=== PATIENT | female | born 1950 | race Caucasian/White ===

== ENCOUNTER → 2017-12-24 | Outpatient (CLI) | payer MEDICARE, OTHER ==
[~2017-12-24] MED LIST: ABAT250V; ACET500 PO; Bupropion Xl150 MG PO; CLON.5 PO; GABA300 PO; HYDSUL200 PO; MELO7.5 PO; METO100ER PO; OMEPRAZOLE MAGN20 MG PO; OXYC10TA19 PO; Omeprazole20 M1 PO; PRED10 PO; PRED5 PO; SUCR1 PO; ZOLP10 PO
== END | disposition home or self-care (01) ==
LOC: OLS 16:53
DX: N89.8 Other specified noninflammatory disorders of vagina (principal); N90.89 Other specified noninflammatory disorders of vulva and perineum
CPT/HCPCS: 87070; 87205

== ENCOUNTER → 2018-12-18 | Outpatient (CLI) | payer MEDICARE, OTHER ==
[2018-12-19 16:07] LABS: HPV 16 Negative (Negative); HPV 18 Negative (Negative); HPV OTHER HR TYPES Negative (Negative)
== END | disposition home or self-care (01) ==
LOC: LAB SHORT 12:08 → LAB 12:08
PROVIDERS: Nurse Practitioner Women's Health
DX: Z12.72 Encounter for screening for malignant neoplasm of vagina (principal); Z86.19 Personal history of other infectious and parasitic diseases; Z91.89 Other specified personal risk factors, not elsewhere classified
CPT/HCPCS: 87624; G0123

== ENCOUNTER → 2022-02-15 | Outpatient (CLI) | payer MEDICARE, OTHER ==
[2022-02-16 12:07] LABS: Adenovirus F 40/41 Not Detected (NOT DETECT); Astrovirus Not Detected (NOT DETECT); Campylobacter Sp Not Detected (NOT DETECT); Cryptosporidium Not Detected (NOT DETECT); Cyclospora Cayetanensis Not Detected (NOT DETECT); E. Coli O157 Not Detected (NOT DETECT); Entamoeba Histolytica Not Detected (NOT DETECT); Enteroaggregative E. coli-EAEC Not Detected (NOT DETECT); Enteropathogenic E. coli-EPEC Not Detected (NOT DETECT); Enterotoxigenic E. coli-ETEC Not Detected (NOT DETECT); Giardia Lamblia Not Detected (NOT DETECT); Norovirus GI/GII Not Detected (NOT DETECT); Plesiomonas Shigelloides Not Detected (NOT DETECT); Rotavirus A Not Detected (NOT DETECT); Salmonella Sp Not Detected (NOT DETECT); Sapovirus Not Detected (NOT DETECT); Shiga Toxin-prod E. coli-STEC Not Detected (NOT DETECT); Shigella/Enteroin E. coli-EIEC Not Detected (NOT DETECT); Vibrio Cholerae Not Detected (NOT DETECT); Vibrio Sp Not Detected (NOT DETECT); Yersinia Enterocolitica Not Detected (NOT DETECT)
== END | disposition home or self-care (01) ==
LOC: LAB SHORT 22:00
PROVIDERS: Physician Assistant
DX: R19.7 Diarrhea, unspecified (principal)
CPT/HCPCS: 87507

== ENCOUNTER → 2024-03-06 | Outpatient (CLI) | payer MEDICARE, OTHER | END | disposition home or self-care (01) | LOC: LAB EV 11:06 → LAB SHORT 11:06 | DX: L72.8 Other follicular cysts of the skin and subcutaneous tissue (principal) | CPT/HCPCS: 88304 ==

== ENCOUNTER 2024-11-25 08:30 | Day surgery (SDC) | payer MEDICARE, OTHER ==
[2024-11-25] VITALS (18 sets, daily range): BP systolic 89–140; BP diastolic 47–108
[~2024-11-25] VITALS: Ht 167.6 cm; Wt 75.0 kg
[~2024-11-25 08:30] MED LIST changes: +Acyclovir800 MG PO; +BUPR150ER PO; -Bupropion Xl150 MG PO; +Cymbalta20 MG PO; +FIBER PO; +MULVITA PO; +OMEP20ER PO; -Omeprazole20 M1 PO; +VITAMIN D350 MC3 PO
[2024-11-25] MEDS ORDERED: Lactated Ringer's 1,000 ML IV SCH ×2 (08:50→11:00)
[2024-11-25] MEDS ORDERED: Tranexamic Acid 1,000 MG in NS 100 ML IV SCH (08:50)
[2024-11-25] MEDS ORDERED: Ropivacaine 0.5% HCl/Pf 123.125 MG,EPINEPHrine HCL 0.25 MG,Ketorolac Tromethamine 15 MG... INFIL SCH (08:50)
[2024-11-25] MEDS ORDERED: Acetaminophen 500 MG Tab PO SCH ×2 (08:50→16:00)
[2024-11-25] MEDS ORDERED: Chlorhexidine Mouth Care 15 ML UDC MT SCH (08:50)
[2024-11-25] MEDS ORDERED: CeFAZolin Sodium 2,000 MG in NS 100 ML IV SCH ×2 (08:50→20:00)
[2024-11-25] MEDS ORDERED: OxyCODONE HCL 10 MG TABCR PO SCH (09:00)
[2024-11-25] MEDS ORDERED: META800 PO (09:22)
[2024-11-25] MEDS ORDERED: Midazolam HCl 1MG / ML 2ML Vial ONE (10:14)
[2024-11-25] MEDS ORDERED: Bisacodyl 10 MG Supp PR PRN (10:55)
[2024-11-25] MEDS ORDERED: OxyCODONE HCL 5 MG TAB PO PRN ×2 (10:55)
[2024-11-25] MEDS ORDERED: HYDROmorphone HCl/Pf 1MG SYR IV PRN (10:55)
[2024-11-25] MEDS ORDERED: FLU VACC TS2024-25(6MOS UP)/PF 45 MCG/0.5 ML SYRINGE IM SCH (11:00)
[2024-11-25] MEDS ORDERED: Metoclopramide HCl 5MG / ML 2ML Vial IV PRN (11:00)
[2024-11-25] MEDS ORDERED: Magnesium Hydroxide Conc 10 ML UDC PO PRN (11:00)
[2024-11-25] MEDS ORDERED: Ondansetron HCl 2 MG / ML 2ML Vial IV PRN (11:00)
[2024-11-25] MEDS ORDERED: DiphenhydrAMINE HCL 25 MG Cap PO PRN (11:05)
[2024-11-25] MEDS ORDERED: Promethazine HCl 25 MG Tab PO PRN (11:05)
[2024-11-25] MEDS ORDERED: propofoL 60 ML IV ONE (11:40)
[2024-11-25] MEDS ORDERED: ePHEDrine Sulfate 50 MG/ML 1ML Injection ONE (12:31)
--- NOTE | 2024-11-25 14:15 | NUR ---
PT ARRIVED FROM PACU TO RM 215 AT APPROXIMATELY 1410. PT HAD SPINAL ANESTHESIA AND STILL HAS NUMBNESS TO BLE ALTHOUGH SHE IS STARTING TO MOVE HER FEET. SPINAL ANESTHESIA SITE WNL. R KNEE INCISION SITE COVERED WITH AQUACEL AND STEVE WRAP, DRESSINGS C/D/I. PT EDUCATED TO USE THE CALL LIGHT AND IT WAS PLACED WITHIN REACH. VSS. PT'S FRIEND AT THE BEDSIDE FOR SUPPORT.
[2024-11-25] MEDS ORDERED: Ketorolac Tromethamine 15mg Vial IV SCH (18:00)
[2024-11-25] MEDS ORDERED: LORazepam 0.5 MG Tab PO PRN (18:40)
--- NOTE | 2024-11-25 19:00 | NUR ---
SHIFT SUMMARY PT IS POD#0 FROM R TKA WITH DR. ZHU. PAIN MANAGED WITH PO PAIN MEDICATION. PT HAS BEEN OOB TO AMBULATE AND WORKED WITH THERAPY BUT DID NO CLEAR THERAPY. PT BECAME ANXIOUS AND STATED SHE WANTED TO DISCHARGE HOME, SHE WAS CRYING AND REPORTED SHE HAS HAVING A PANIC ATTACK. PT STATED THAT SHE WOULD BE WILLING TO STAY IF SHE COULD TAKE SOMETHING FOR ANXIETY. DR. ZHU NOTIFIED OF SITUATION, ATIVAN GIVEN PER DR. ZHU ORDER. PT TOLERATED PO. WAITING FOR POST-OP VOID. BEDSIDE REPORT GIVEN TO DENISE SCALES.
[2024-11-25] MEDS ORDERED: Docusate Sodium 100 MG Cap PO SCH (21:00)
[2024-11-25] MEDS ORDERED: Gabapentin 300 MG Cap PO SCH (21:00)
[2024-11-26 00:26] VITALS: BP 119/78
--- NOTE | 2024-11-26 00:39 | NUR ---
TRANSFER OF CARE S/P R TOTAL KNEE. AQUACEL & STEVE WRAP C/D/I, NO DRAINAGE. POLAR PACK IN PLACE. PT REPORTS PAIN IS WELL MANAGED W/CURRENT PAIN MED REGIMEN. HAS VOIDED, TOLERATING PO, AMBULATED IN RM 1 ASSIST. GAVE REPORT TO RONDA Worley
[2024-11-26 04:53] VITALS: BP 108/57
--- NOTE | 2024-11-26 05:32 | NUR ---
SX SUMMARY- PAIN AND ANXIETY HAS BEEN MANAGED WELL. PT IS EAGER TO GO HOME. PT DENIES N/T THIS AM. PT IS AMBULATORY AND VOIDING. PT IS AWAKE AND HAS NO COMPLAINTS. CALL LIGHT IN REACH.
[2024-11-26 05:35] LABS: BASOPHILS ABSOLUTE AUTO 0.04 K/mm3 (0.00-0.23); BASOPHILS PERCENT AUTO 1 % (0-2); EOSINOPHILS ABSOLUTE AUTO 0.15 K/mm3 (0.00-0.68); EOSINOPHILS PERCENT AUTO 2 % (0-6); Hematocrit 34.5 % (33.0-51.0); Hemoglobin 11.1 g/dL (11.5-16.0); IMMATURE GRAN ABSOLUTE AUTO 0.01 K/mm3 (0.00-0.10); IMMATURE GRAN PERCENT AUTO 0 % (0-1); LYMPHOCYTES ABSOLUTE AUTO 1.45 K/mm3 (0.84-5.20); LYMPHOCYTES PERCENT AUTO 21 % (21-46); MONOCYTES ABSOLUTE AUTO 1.05 K/mm3 (0.16-1.47); MONOCYTES PERCENT AUTO 15 % (4-13); Mean Corpuscular HGB Conc 32.2 g/dL (31.5-36.5); Mean Corpuscular Volume 93 fL (80-100); Mean Platelet Volume 9.1 fL (9.1-12.4); NEUTROPHILS PERCENT AUTO 62 % (41-73); Platelet Count 187 K/mm3 (150-400); RDW Coefficient Variation 12.1 % (11.7-14.2); RDW Standard Deviation 42.2 fL (35.1-46.3)
[2024-11-26] MEDS ORDERED: Omeprazole 20 MG CapCR PO SCH (06:00)
[2024-11-26 06:06] LABS: Calcium, Blood 8.6 mg/dL (8.5-10.1); Creatinine, Blood 0.73 mg/dL (0.40-1.00); Potassium, Blood 3.9 mmol/L (3.5-5.5)
[2024-11-26 07:35] VITALS: BP 112/67
[2024-11-26] MEDS ORDERED: ASPI81CH PO (08:34)
[2024-11-26] MEDS ORDERED: DULoxetine HCL 20 MG Cap DR PO SCH (09:00)
[2024-11-26] MEDS ORDERED: buPROPion HCL 150 MG TAB.SR.12H PO SCH (09:00)
[2024-11-26] MEDS ORDERED: Multivitamins 1 Tab PO SCH (09:00)
[2024-11-26] MEDS ORDERED: Psyllium 1 EA Pack PO SCH (09:00)
[2024-11-26] MEDS ORDERED: Gabapentin 300 MG Cap PO SCH (09:00)
[2024-11-26] MEDS ORDERED: Aspirin 81 MG Chew PO SCH (09:00)
[2024-11-26] MEDS ORDERED: Metoprolol Succinate 25 MG TABCR PO SCH (09:00)
--- NOTE | 2024-11-26 10:18 | NUR ---
DISCHARGE NOTE THIS RN ASSUMED CARE AT APPROX 0715. PATIENT ALERT AND ORIENTED X4. IS ROSEBUD - HEARING AIDES AT BEDSIDE. COMMUNICATES NEEDS EFFECTIVELY. VSS. POD 1 R TKA. AQUACEL AND STEVE WRAP DX C/D/I, NO SHADOWING NOTED. UP WITH 1P FWW GB. CLEARED BY PHYSICAL THERAPY EVAL FOR DC HOME. MANAGING PAIN WITH PRESCRIBED THERAPY. TOLERATING PO INTAKE. VOIDING. DC EDUCATION PROVIDED - PATIENT STATES UNDERSTANDING. AQUACEL DXs PROVIDED FOR WOUND CARE AT HOME. IV REMOVED. PERSONAL BELONGINGS WITH PATIENT. PATIENT TRANSFERRED OFF UNIT FOR DC VIA WHEELCHAIR AT APPROX 1020.
[2024-11-27] MEDS ORDERED: Cholecalciferol 1000 Unit Tablet (=25MCG) PO SCH (09:00)
== END 2024-11-26 10:25 | disposition home or self-care (01) ==
LOC: ORSCMMR 08:30 → ORD 10:00 → SURS 14:51 → ORSCMMR 11-26 10:25
PROVIDERS: Orthopaedic Surgery
PROC: 0SRC0JA Replacement of Right Knee Joint with Synthetic Substitute, Uncemented, Open Approach (ICD-10-PCS; principal; 2024-11-25 10:00)
DX: M17.11 Unilateral primary osteoarthritis, right knee (principal); M32.9 Systemic lupus erythematosus, unspecified; F41.9 Anxiety disorder, unspecified; Z79.899 Other long term (current) drug therapy
CPT/HCPCS: 36415; 73560-RT; 80048; 85025; 97110; 97116; 97161; 97530; A9270; C1713; C1776; J0171; J0690; J0735; J1885; J2250; J2704; J2795; J7120